=== PATIENT | male | born 1990 | race African-American/Black ===

== ENCOUNTER 2017-06-01 13:54 | Emergency (ER) | payer SELFPAY ==
[~2017-06-01] VITALS: Ht 185.4 cm; Wt 108.9 kg
[~2017-06-01 13:54] MED LIST: FLEXERIL10 MG PO; MOTRIN600 MG PO; NAPROSYN 500MG500 MG PO; NOMEDS; PHENERGAN 25MG.25 M1 PO; PHENERGAN 25MG.25 MG PR; VOLTAREN75 MG PO; ZANTAC 150150 MG OR; ZOFRAN 8MG TABLE8 MG PO; ZOFRAN ODT4 MG PO
--- OUTSIDE RECORDS SUMMARY | 2017-06-01 14:11 | External Medical Summary Rpt | CCD ---
Demographics Preferred Language Uzbek Marital Status Unknown Scientology Affiliation Unknown Race Unknown Ethnic Group Unknown Author Author , MARY LOU BARRETO Address Unknown Phone mary Immunization No patient found.
--- OUTSIDE RECORDS SUMMARY | 2017-06-01 14:11 | External Medical Summary Rpt | CCD ---
Author Author [employer]duent Organization Conduent Address Unknown Phone Unavailable Purpose Continuity of Care Document - through 2016
--- OUTSIDE RECORDS SUMMARY | 2017-06-01 14:11 | External Medical Summary Rpt | CCD ---
Author Author , MARY LOU BARRETO Address Unknown Phone [email or web address] Care Team Providers Care Busgirl Name Role Phone Lewis Ureña MD, Unavailable Unavailable Lewis Ureña MD Purpose Continuity of Care Document - 01-26-2013 through 2016 Problems Code Diagnosis DOS Provider Status 292.0 292.0 DRUG 01-26-2013 [place] WITHDRAWAL [facility] 304.00 304.00 01-26-2013 [place] OPIOID [facility] DEPENDENCE- [facility] UNSPEC 305.1 305.1 01-26-2013 [place] TOBACCO USE [facility] Allergies, Adverse Reactions, Alerts Type Allergy to substance Adverse Reaction to Substance Substance Reaction Severity NO KNOWN ALLERGIES Unknown Unknown Medications Na ND Rx Da Fi Fi Am Da Di Ph RX Ph St me C No te ll ll ou ys ag ar # ys at rm s nt no ma ic us Or Da si cy ia de te s n re d SO 00 07 0 No DI 40 -2 UM 97 8- Lo 98 20 ng CH 30 13 er LO 9 RI Ac DE ti ve 0. 9% SO OJ TI ON Sa 63 07 0 No li 80 -2 ne 70 8- Lo 10 20 ng Fl 07 13 er us 5 h Ac 10 ti ML ve Sy ri ng e ON 00 07 0 No DA 64 -2 NS 16 8- Lo ET 08 20 ng RO 02 13 er N 5 HC Ac L ti 4 ve MG /2 ML AL DE 00 07 0 No OM 64 -2 ET 11 8- Lo GIBBONS 49 20 ng ZI 53 13 er NE 5 Ac 25 ti ve MG /M L AM PU L KE 00 07 0 No TO 40 -2 RO 93 8- Lo LA 79 20 ng C 50 13 er 30 1 Ac MG ti /M ve L AL DE 00 07 0 No OT 00 -2 ON 80 8- Lo IX 92 20 ng 35 13 er IV 5 Ac 40 ti ve MG AL Vital Signs 01-26-2013 22:34 Name Value Interpretat Reference Comment ion Range BP 67 mm[Hg] Diastolic BP Systolic 140 mm[Hg] Heart 59 /min Rate/Pulse O2% 97 % Respiratory 20 /min Rate 01-26-2013 19:43 Name Value Interpretat Reference Comment ion Range BP 38 mm[Hg] Diastolic BP Systolic 119 mm[Hg] Heart 54 /min Rate/Pulse O2% 90 % Respiratory 20 /min Rate Results Labs Lab Lab Date Result Refere Interp Status Commen Order Detail nces retati t Range on COMPREHENSIVE METABOLIC PANEL (01-26-2013 19:29) Glucose 116 74-106 complet 013 mg/dL ed Bld-mCn 19:29 c BUN 10 7-18 complet Bld-mCn 013 mg/dL ed c 19:29 Creat 1.3 0.8-1.3 complet SerPl-m 013 mg/dL ed Cnc 19:29 ESTIMAT 161 50-200 complet ED 013 ML/MIN ed CREATIN 19:29 INE CLEARAN CE GFR 70 Greater complet (ESTIMA 013 ML/MIN than ed CARITO) 19:29 60 Sodium 139 136-145 complet SerPl-s 013 mmoL/L ed Cnc 19:29 Potassi 3.4 3.5-5.1 complet um 013 mmoL/L ed SerPl-s 19:29 Cnc Chlorid 102 98-107 complet e 013 mmoL/L ed SerPl-s 19:29 Cnc CO2 24 21.0-32 complet SerPl-s 013 mmoL/L .0 ed Cnc 19:29 Calcium 9.3 8.5-10. complet 013 mg/dL 1 ed SerPl-m 19:29 Cnc Prot 8.6 6.4-8.2 complet SerPl-m 013 gm/dL ed Cnc 19:29 Albumin 4.5 3.4-5.0 complet 013 gm/dL ed SerPl-m 19:29 Cnc Globuli 4.1 1.3-3.2 complet n 013 gm/dL ed Ser-mCn 19:29 c Albumin 1.1 UNK 1.1-1.8 complet /Glob 013 ed SerPl-m 19:29 Rto Bilirub 2 0.5 0.2-1.0 complet 013 mg/dL ed SerPl-m 19:29 Cnc AST 2 48 U/L 15-37 complet SerPl-c 013 ed Cnc 19:29 ALT 105 U/L 30-65 complet SerPl-c 013 ed Cnc 19:29 ALP 2 122 U/L 50-136 complet SerPl-c 013 ed Cnc 19:29 Amylase SerPl-cCnc (01-26-2013 19:29) Amylase 2 44 U/L 25-115 complet 013 ed SerPl-c 19:29 Cnc LIPASE (01-26-2013 19:29) LIPASE 97 U/L 73-393 complet 013 ed 19:29 CBC with AUTO DIFF (01-26-2013 19:29) WBC # 01-26-2 15.9 4.8-10. complet Bld 013 K/MM3 8 ed Auto 19:29 RBC # 01-26-2 5.54 4.6-6.2 complet Bld 013 M/mm3 ed Auto 19:29 Hgb 01-26-2 16.8 14.1-18 complet Bld-mCn 013 g/dL .0 ed c 19:29 Hct Fr 49.5 % 42.0-52 complet Bld 013 .0 ed 19:29 MCV RBC 01-26-2 89.3 fl 82.2-97 complet 013 .8 ed 19:29 MCH RBC 01-26-2 30.4 pg 27-31.2 complet Qn 013 ed Auto 19:29 MEAN 2 34.0 31.8-35 complet CORPUSC 013 g/dl .4 ed ULAR 19:29 HGB CONC RDW RBC 2 13.1 % 11.5-17 complet Auto 013 .5 ed 19:29 Platele 01-26-2 396 142-424 complet t Bld 013 K/mm3 ed Ql 19:29 Manual MEAN 2 6.7 fl 7.4-10. complet PLATELE 013 4 ed T 19:29 VOLUME Granulo 01-26-2 84.2 % 37.0-80 complet cytes 013 .0 ed Fr Bld 19:29 Auto LYMPH % 01-26-2 11.0 % 10-50 complet 013 ed 19:29 Monocyt 01-26-2 3.4 % 1.7-9.3 complet es Fr 013 ed Bld 19:29 Auto Eosinop 01-26-2 1.1 % 0.1-12. complet hil Fr 013 0 ed Bld 19:29 Auto Basophi 01-26-2 0.3 % 0.1-2.0 complet ls Fr 013 ed Bld 19:29 Auto Granulo 01-26-2 13.4 1.3-8.0 complet cytes # 013 K/mm3 ed Bld 19:29 Auto Lymphoc 01-26-2 1.8 0.7-4.5 complet ytes Fr 013 K/mm3 ed Bld 19:29 Auto Monocyt 01-26-2 0.6 0.1-1.0 complet es # 013 K/mm3 ed Bld 19:29 Auto Eosinop 01-26-2 0.2 0.0-0.4 complet hil # 013 K/mm3 ed Bld 19:29 Auto Basophi 01-26-2 0.1 0-0.2 complet ls # 013 K/MM3 ed Bld 19:29 Auto Encounters Encounter Start End Date Code Location Performer Type Date Emergency JOAO Ureña MD (ER) 3 19:36 3 22:43 [facility]
--- OUTSIDE RECORDS SUMMARY | 2017-06-01 14:11 | External Medical Summary Rpt ---
Author Author MARY LOU Murray, MARY LOU [employer] Organization [employer] Address Unknown Phone Unavailable
--- OUTSIDE RECORDS SUMMARY | 2017-06-01 14:11 | External Medical Summary Rpt | CCD ---
Demographics Preferred Language Maori Marital Status Unknown Sikhism Affiliation Unknown Race Unknown Ethnic Group Unknown Author Author , MARY LOU BARRETO Address Unknown Phone mary Immunization No patient found.
--- OUTSIDE RECORDS SUMMARY | 2017-06-01 14:11 | External Medical Summary Rpt ---
Author Author MARY LOU Murray, MARY LOU [employer] Address Unknown Phone Unavailable
--- OUTSIDE RECORDS SUMMARY | 2017-06-01 14:11 | External Medical Summary Rpt | CCD ---
Author Author , MARY LOU BARRETO Address Unknown Phone [email or web address] Care Team Providers Care Florist'S Decorator Name Role Phone Lewis Ureña MD, Unavailable Unavailable Lewis Ureña MD Purpose Continuity of Care Document - 01-26-2013 through 2016 Problems Code Diagnosis DOS Provider Status 292.0 292.0 DRUG 01-26-2013 [place] WITHDRAWAL [facility] 304.00 304.00 01-26-2013 [place] OPIOID [facility] DEPENDENCE- [facility] UNSPEC 305.1 305.1 01-26-2013 [place] [address]CO USE [facility] Allergies, Adverse Reactions, Alerts Type Allergy [...] ti 4 ve MG /2 ML AL [place] 00 07 0 No OM 64 -2 ET 11 8- Lo GIBBONS 49 20 ng ZI 53 13 er NE 5 Ac 25 ti ve MG /M L AM PU L KE 00 07 0 No TO 40 -2 RO 93 8- Lo LA 79 20 ng C 50 13 er 30 1 Ac MG ti /M ve L AL TN 00 07 0 No OT 00 -2 [...] Ureña MD (ER) 3 19:36 3 22:43 [facility]
[2017-06-01] MEDS ORDERED: IBUPROFEN800 MG PO (14:32)
[2017-06-01] MEDS ORDERED: AMOXICILLIN 50500 MG PO (14:32)
--- NOTE | 2017-06-01 14:33 | Urgent Treatment Center Report ---
History of Present Issue Date/Time Seen by Provider 06/01/17 1422 Visit Reason Pt arrived:Walked Presenting Problem:TOOTHACHE X2 DAYS Location if Accident: Onset of symptoms date/time:/ or onset unknown for:MEDICAL HX UNKNOWN Have you (or family members/close friends) recently traveled outside the [place]? N If Yes, where/when: Have you had exposure to infectious disease within the past month? TB? Other? Specify: Patient state that he recently had dental work done on tooth on the right lower jow State that the dentist put a temporary filling in and was hoping that it would last State that it began to hurt about 2 days ago and he has been calling around trying to find a dentist to get into however he has been unable to get in to be seen State that he came here today because he needed a little something to get him through the weekend ALLERGIES Coded Allergies: NO KNOWN ALLERGIES (06/01/17) Home Medications Active Scripts Promethazine Hydrochloride (Phenergan 25MG Tab) 25 MG PO Q4-6H PRN #12 TAB Ref 1 Prov: 01/26/13 Ondansetron (Zofran 4MG Odt) 8 MG PO TID #12 ODT Ref 1 Prov: 01/26/13 Ranitidine Hcl (Zantac) 150 MG OR BID #30 TAB Ref 1 Prov: 01/26/13 Reported Medications No Home Medications (NO HOME MEDICATIONS) History Medical History General CAD? No Angina: No [place]: No Hypertension? No Hyperlipidemia? No CHF? No DVT? No PE? No COPD? No Asthma? No Anemia? No GERD? No Gastric ulcers? No GI Bleed? No Hernia? No Thyroid Problems? No Hypothyroidism? No CVA? No Seizures? No Diabetes? No Renal Insuffiency? No UTI? No Stones? No BPH? No GB Disease: No Nephritic Syndrome? No Asplenia? No Hepatitis? No Sickle Cell Disease? No Arthritis? No Migraines? No Cataracts? No Glaucoma? No MRSA? No HIV? No TB? No Anxiety? No Depression? No Cancer? No More? No Immunization HX DT/Tetanus 1-4 YRS Surgical Hx Previous Surgery?Y TONSILECTOMY & ADENOIDS Social History Smoking Hx Smoker: Current Every Day Smoker Tobacco: Yes Type Cigarettes Packs/day < 1 Pack Alcohol Alcohol: No Review of Systems All Other Systems Reviewed and Negative ENT dental caries. Physical Exam Vital Signs Vital Signs Date Time Temp Pulse Resp B/P Pulse O2 O2 Flow FiO2 Ox Delivery Rate 06/01 1416 97.6 88 18 142/88 99 General Appearance normal appearance, WD/WN, no apparent distress Ear, Nose, Throat dental caries, Pain and redness around gum area on right lower jaw with what appears to be cracked filling Respiratory Status Yes: trachea midline, chest symmetrical, non tender chest. No: respiratory distress. Lung Sounds bilateral: normal breath sounds, lungs clear. Cardiovascular normal exam, regular rate/rhythm Neurologic alert, normal exam, oriented x 3 Medical Decision Making LABS/Meds/Orders Pt receiving controlled substance in ED? No Results/Orders Current Medication Orders Sig/Brayan Start time Last Medication Dose Route Stop Time Status Admin Lidocaine HCl 15 ML ONCE ONE 06/01 1430 DC TP 06/01 1431 Lidocaine HCl 0 .STK-MED ONE 06/01 1429 DC .ROUTE Orders Procedure Date/time Status UTC DENTAL BALL 06/01 142 Active Departure Departure Time of Disposition 1430 Disposition DC Home or Self Care(routine) Clinical Impression Primary Impression: Pain, dental Condition STABLE Referrals [facility] Patient Instructions DI for Dental Pain, DI for Tooth Decay, Tooth Abscess, Tooth Decay Additional Instructions Follow up with dentist as advised Return if needed Take medication as prescribed Follow up with family doctor Discharge Counseling Counseled pt/family regarding diagnosis, medications/RX, home care, follow up needs Prescriptions Current Visit Scripts Amoxicillin Trihydrate (Amoxicillin 500MG) 500 MG PO TID #30 CAP Ibuprofen (Ibuprofen 800MG) 800 MG PO QIDP PRN pain #30 TAB at 1432
[2017-06-01 14:36] VITALS: BP 142/88
== END 2017-06-01 14:37 | disposition home or self-care (01) ==
LOC: ER 13:54 → UTC 14:08
DX: K02.9 Dental caries, unspecified (principal); F17.210 Nicotine dependence, cigarettes, uncomplicated